=== PATIENT | female | born 1945 | race African-American/Black ===

== ENCOUNTER 2021-07-23 01:25 | Observation (INO) | payer MEDICARE ==
[~2021-07-23] VITALS: Ht 162.6 cm; Wt 98.2 kg
--- NOTE | 2021-07-23 01:44 | PHYS DOC ---
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 Patient states chest pain started around 1300 hrs. substernal without radiation. Patient is describes pain as a heaviness that fluctuates in intensity. Patient states pain is when it is at its worst is 8 out of 10 but never been improves below a 5 out of 10. Patient denies any associated nausea vomiting shortness of breath or diaphoresis. Review of Systems: Review of Systems: Review of systems: Constitutional symptoms- No fever, no chills. Eyes- No Discharge, No Visual Loss Respiratory symptoms- No shortness of breath, No wheezing, No Dyspnea on Exertion Cardiovascular Systems; Positive chest pain, No Palpitations, No syncope Gastrointestinal symptoms: NO abdominal pain, no nausea, no vomiting or diarrhea. Genitourinary symptoms: No dysuria. Musculoskeletal symptoms: No back pain No extremity pain. NEUROLOGICAL Symptoms: No headache, no generalized weakness; No focal Weakness Skin: No rash. Heart Score: C/O Chest Pain: Yes HEART Score for Chest Pain: HEART Score for Chest Pain Response (Comments) Value History Moderately Suspicious 1 ECG Nonspecific Repolarizatio 1 Age > 65 2 Risk Factors 1 or 2 Risk Factors 1 Troponin < Normal Limit 0 Total 5 Risk Factors: Risk Factors: DM, Current or recent (<one month) smoker, HTN, HLP, family history of CAD, obesity. Risk Scores: Score 0 - 3: 2.5% MACE over next 6 weeks - Discharge Home Score 4 - 6: 20.3% MACE over next 6 weeks - Admit for Clinical Observation Score 7 - 10: 72.7% MACE over next 6 weeks - Early Invasive Strategies Allergies: Allergies: Allergies Coded Allergies Type Severity Reaction Last Updated Verified codeine Allergy Intermediate HEART PALPITATIONS 11/29/15 Yes Physical Exam: PE: General: alert, no acute distress. Skin: warm, dry and intact, no erythema, no rash. HENT: bilateral external ears normal, oropharynx moist, nose normal. Head:: Normocephalic, atraumatic. Neck: Trachea midline. Eyes: EOMI, Normal conjunctiva, No drainage CARDIOVASCULAR: Regular rate and rhythm RESPIRATORY: No respiratory distress Back: Full range of motion. MUSCULOSKELETAL: Full range of motion of bilateral upper and lower extremities. GASTROINTESTINAL: Abdomen soft without rebound or guarding. NEUROLOGICAL: Alert and noted to person, place and time. No neurological deficits observed Psychiatric: Cooperative. Normal judgment EKG: EKG: [] Performed at 0134 Rate [address] elevation No ST depression No acute [place] Radiology/Procedures: Radiology/Procedures: [] Impression: EXAMINATION: Chest radiograph. VIEWS: Single AP view of the chest COMPARISON: None available INDICATION:76 years, Female, chest pain. FINDINGS: Hypoventilatory exam . There is partial obscuration of the cardiac silhouette. The thoracic aorta appears tortuous with mild atherosclerotic disease. Silhouette. Bibasilar linear opacities and mild blunting of the left costophrenic angle. No pneumothorax. No acute osseous process. IMPRESSION: Hypoventilatory exam degrading evaluation of the pulmonary parenchyma. Bibasilar opacities favor subsegmental atelectasis and/or infiltrates. Electronically signed by: Howard Ho DO (07/23/2021 2:29 AM) [facility] Course & Med Decision Making: Course & Med Decision Making Pertinent Labs and Imaging studies reviewed. (See chart for details) [] Patient was evaluated for chief complaint. Work-up consisted of laboratory analysis radiologic imaging and EKG. Results reviewed and discussed with patient and family. Treatment included morphine 4 mg for pain. Post treatment patient states pain improved to a 3 out of 10. Patient's pain did return she was then treated with nitroglycerin sublingual x3. Patient's pain again improved to 3 out of 10 but returned. Patient was started on a nitro drip. Patient did have a slightly elevated troponin. Patient is allergic to aspirin. Pain resolved on nitro drip. Admitted to hospitalist with cardiology consult. Alexa Disclaimer: Alexa Disclaimer: This electronic medical record was generated, in whole or in part, using a voice recognition dictation system. Departure Departure Impression: Primary Impression: Chest pain Disposition: ADMITTED INPATIENT Condition: STABLE Referrals: SUPA CHANCE MD (PCP) LUCIANO SHINE DO Jul 23, 2021 01:44
--- NOTE | 2021-07-23 01:44 | EKG ---
[facility] [address] [place] [address] Test Date: 2021-07-23 Test Time: 01:34:14 Pat Name: AILIN SAUER Department: Room: Gender: F Apartment Maintenance Manager: : 1945 Requested By: LUCIANO SHINE Order Number: [id number] Reading MD: Measurements Intervals [place] Rate: 53 P: 25 SD: 188 QRS: -19 QRSD: 92 T: -2 QT: 472 QTc: 445 Interpretive Statements SINUS RHYTHM LEFTWARD AXIS T ABNORMALITY IN INFERIOR LEADS ABNORMAL ECG RI6.02 No previous ECG available for comparison
[2021-07-23 02:01] LABS: BASO % 0 % (0-3); EOS # 0.4 x10^3/uL (0.0-0.7); EOS % 5 % (0-3); HEMATOCRIT 34.7 % (36.0-47.0); HEMOGLOBIN 11.3 g/dL (12.0-15.5); LYMPH # 2.2 x10^3/uL (1.0-4.8); LYMPH % 26 % (24-48); MEAN CORPUSCULAR HEMOGLOBIN 29 pg (25-35); MEAN CORPUSCULAR HGB CONC 32 g/dL (31-37); MEAN CORPUSCULAR VOLUME 88 fL (79-100); MONO # 0.8 x10^3/uL (0.0-1.1); MONO % 10 % (0-9); NEUT % 59 % (31-73); PLATELET COUNT 180 x10^3/uL (140-400); RED BLOOD COUNT 3.93 x10^6/uL (3.50-5.40); RED CELL DISTRIBUTION WIDTH 13.7 % (11.5-14.5); WHITE BLOOD COUNT 8.4 x10^3/uL (4.0-11.0)
[2021-07-23 02:12] LABS: CALCIUM 8.8 mg/dL (8.5-10.1); CREATININE 0.9 mg/dL (0.6-1.0); GFR 73.5
[2021-07-23 02:18] LABS: ALBUMIN 3.6 g/dL (3.4-5.0); ALBUMIN/GLOBULIN RATIO 1.2 (1.0-1.7); TOTAL BILIRUBIN 0.2 mg/dL (0.2-1.0); TOTAL PROTEIN 6.5 g/dL (6.4-8.2)
[2021-07-23] MEDS ORDERED: MORPHINE SULFATE 4 MG/ML INJ. IVP ONE ×2 (02:30→03:30)
--- NOTE | 2021-07-23 02:31 | RAD ---
EXAMINATION: Chest radiograph. VIEWS: Single AP view of the chest COMPARISON: None available INDICATION:76 years, Female, chest pain. FINDINGS: Hypoventilatory exam . There is partial obscuration of the cardiac silhouette. The thoracic aorta bianca ears tortuous with mild atherosclerotic disease. Silhouette. Bibasilar linear opacities and mild blun ting of the left costophrenic angle. No pneumothorax. No acute osseous process. IMPRESSION: Hypoventilatory exam degrading evaluation of the pulmonary parenchyma. Bibasilar opacities favor subs egmental atelectasis and/or infiltrates. Electronically signed by: Howard Ho DO (07/23/2021 2:29 AM) [facility]
[2021-07-23] MEDS ORDERED: NITROGLYCERIN SUBLINGUAL 0.4 MG BOTTLE OF 25. SL PRN ×2 (03:00→03:30)
[2021-07-23] MEDS ORDERED: NITROGLYCERIN PREMIX 250 ML IV ONE (04:00)
[2021-07-23] MEDS: MORPHINE SULFATE 4 MG/ML INJ. IVP PRN ×2 (08:56→11:27)
--- NOTE | 2021-07-23 10:11 | PDOC2 ---
SASHA PALMER MEDIC TECHNICIAN 07/23/21 1011: CARDIAC CONSULT DATE OF CONSULT Date of Consult DATE: 07/23/21 TIME: 09:55 REASON FOR CONSULT Reason for Consult: Chest pain REFERRING PHYSICIAN Referring Physician: Lewis SOURCE Source: Chart review, Patient HISTORY OF PRESENT ILLNESS HISTORY OF PRESENT ILLNESS This is a pleasant 76 yo female admitted for complains of chest pain. Reports that this is lower sternal at the stomach junction and radiated downward towards her bladder. She has been farting a lot no belching and denies any heartburn. Her chest discomfort is like someon is sitting on her chest. No SOA. 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 She can walk a block before getting tired. No nausea or vomiting. No recent falls or injury or intractable coughing. She does take protonix. She does not take ASA. She is significant for HTN and HLP and no DM2. with last A1C at 5.3 with good lipid control in 01/2021. Denies any past hx of CAD nor VTE and she had a stress test in the past but remote. She is vaccinated for the covid-19 and no s/s. No orthopnea or PND. Denies palpitations or dizziness. PAST MEDICAL HISTORY Cardiovascular: HTN, Hyperlipidemia Pulmonary: Other (OK uses CPAP and O2 at night) CENTRAL NERVOUS SYSTEM: Other (No pertinent history) GI: GERD Heme/Onc: No pertinent hx Hepatobiliary: No pertinent hx Psych: No pertinent hx Musculoskeletal: Osteoarthritis Rheumatologic: No pertinent hx Infectious disease: No pertinent hx ENT: Other (optic neuroma) Renal/: Urinary Incontinence Endocrine: No pertinent hx Dermatology: No pertinent hx PAST SURGICAL HISTORY Past Surgical History: Cholecystectomy, Hysterectomy, Other (right optic neuroma removal) FAMILY HISTORY Family History: Coronary Artery Disease (mother in her 70s) SOCIAL HISTORY Smoke: Quit ALCOHOL: none Drugs: None Lives: with Family CURRENT MEDICATIONS CURRENT MEDICATIONS Current Medications Medications (Trade) Dose Ordered Sig/[place] Route PRN Reason Start Time Stop Time Status Last Admin Dose Admin Morphine Sulfate (Morphine Sulfate) 4 mg 1X ONCE IVP 07/23/21 02:30 07/23/21 02:31 DC 07/23/21 02:25 Nitroglycerin (Nitrostat) 0.4 mg PRN Q5MIN PRN SL CHEST PAIN 07/23/21 03:00 07/23/21 03:28 DC 07/23/21 02:56 Morphine Sulfate (Morphine Sulfate) 4 mg 1X ONCE IVP 07/23/21 03:30 07/23/21 03:31 DC 07/23/21 03:38 Morphine Sulfate (Morphine Sulfate) 4 mg PRN Q2HR PRN IVP SEVERE PAIN 7-10 07/23/21 03:30 07/24/21 03:29 07/23/21 08:56 Nitroglycerin/ Dextrose 250 ml @ 0 mls/hr 1X ONCE IV 07/23/21 04:00 07/23/21 04:01 DC 07/23/21 03:43 ALLERGIES ALLERGIES: Coded Allergies: codeine (Verified Allergy, Intermediate, HEART PALPITATIONS, 11/29/15) aspirin (Verified Adverse Reaction, Intermediate, STOMACH UPSET, 07/23/21) ROS Review of System 14 point ROS evaluated with pertinent positives noted per HPI PHYSICAL EXAM General: Alert, Oriented X3, Cooperative, No acute distress HEENT: Atraumatic, Mucous membr. moist/pink Lungs: Clear to auscultation, Normal air movement Heart: Regular rate (SR/SB lowest 50s), Normal S1, Normal S2, No murmurs Abdomen: Soft, No tenderness Extremities: No cyanosis, Other (1+ bilateral Le pitting edema) Skin: No breakdown, No significant lesion Neuro: Normal speech, Sensation intact Psych/Mental Status: Mental status NL, Mood NL MUSCULOSKELETAL: Osteoarthritic changes both hands VITALS/I&O VITALS/I&O: Vital Signs Date Time Temp Pulse Resp B/P (MAP) Pulse Ox O2 Delivery O2 Flow Rate FiO2 07/23/21 09:20 67 24 159/77 (104) 97 Room Air 07/23/21 01:28 98.8 98.8 LABS Lab: Laboratory Tests Test 07/23/21 01:44 07/23/21 07:50 White Blood Count 8.4 x10^3/uL (4.0-11.0) Red Blood Count 3.93 x10^6/uL (3.50-5.40) Hemoglobin 11.3 g/dL (12.0-15.5) L Hematocrit 34.7 % (36.0-47.0) L Mean Corpuscular Volume 88 fL (79-100) Mean Corpuscular Hemoglobin 29 pg (25-35) Mean Corpuscular Hemoglobin Concent 32 g/dL (31-37) Red Cell Distribution Width 13.7 % (11.5-14.5) Platelet Count 180 x10^3/uL (140-400) Neutrophils (%) (Auto) 59 % (31-73) Lymphocytes (%) (Auto) 26 % (24-48) Monocytes (%) (Auto) 10 % (0-9) H Eosinophils (%) (Auto) 5 % (0-3) H Basophils (%) (Auto) 0 % (0-3) Neutrophils # (Auto) 5.0 x10^3/uL (1.8-7.7) Lymphocytes # (Auto) 2.2 x10^3/uL (1.0-4.8) Monocytes # (Auto) 0.8 x10^3/uL (0.0-1.1) Eosinophils # (Auto) 0.4 x10^3/uL (0.0-0.7) Basophils # (Auto) 0.0 x10^3/uL (0.0-0.2) Sodium Level 141 mmol/L (136-145) Potassium Level 4.0 mmol/L (3.5-5.1) Chloride Level 105 mmol/L (98-107) Carbon Dioxide Level 29 mmol/L (21-32) Anion Gap 7 (6-14) Blood Urea Nitrogen 11 mg/dL (7-20) Creatinine 0.9 mg/dL (0.6-1.0) Estimated GFR (Cockcroft-Gault) 73.5 BUN/Creatinine Ratio 12 (6-20) Glucose Level 163 mg/dL (70-99) H Calcium Level 8.8 mg/dL (8.5-10.1) Total Bilirubin 0.2 mg/dL (0.2-1.0) Aspartate Amino Transferase (AST) 19 U/L (15-37) Alanine Aminotransferase (ALT) 14 U/L (14-59) Alkaline Phosphatase 70 U/L (46-116) Troponin I Quantitative 0.031 ng/mL (0.000-0.055) 0.032 ng/mL (0.000-0.055) Total Protein 6.5 g/dL (6.4-8.2) Albumin 3.6 g/dL (3.4-5.0) Albumin/Globulin Ratio 1.2 (1.0-1.7) Laboratory Tests 07/23/21 01:44 Laboratory Tests 07/23/21 01:44 ASSESSMENT/PLAN ASSESSMENT/PLAN 1. Atypical CP: possibly GI 2. HTN 3. HLP 4. OK: CPAP compliant 5. Obesity 6. GERD: uses PPI Recommendations 1. ASA. Restart home BP regimen and statn 2. TTE today.If no significant changes the may DC this afternoon and will schedule for lexiscan 4. FLP, A1C DIGNA LUCIANO MD 07/24/21 1257: CARDIAC CONSULT ASSESSMENT/PLAN ASSESSMENT/PLAN Patient seen and examined 07/23/2021. Agree with VISITING NURSE's assessment and plan. Chest pain with atypical features and most of the GI etiology. Myocardial infarction has been ruled out. Check 2D echo to assess LV systolic function and rule out wall motion abnormalities. Plan ischemic evaluation as an outpatient. Thank you for your consultation SASHA PALMER APRN Jul 23, 2021 10:11 DIGNA LUCIANO MD Jul 24, 2021 12:57
[2021-07-23 10:31] LABS: CHOLESTEROL/HDL RATIO 2.2
--- NOTE | 2021-07-23 10:33 | PDOC1 ---
History and Physical Date of Admission Date of Admission DATE: 07/23/21 TIME: 10:32 Identification/Chief Complaint Chief Complaint 76 year old female past medical history hypertension hyperlipidemia presented to ER with a chief complaint of chest pain. chest pain started around 1300 hrs. YESTERDAY History of Present Illness History of Present Illness 76 year old female past medical history hypertension hyperlipidemia presented to ER with a chief complaint of chest pain. chest pain started around 1300 hrs. YESTERDAY substernal without radiation. describes pain as a heaviness that fluctuates in intensity pmh HTN and HLP and no DM2. last A1C at 5.3 troponin i neg x 2 TTE today. chol = 158 CXR C/W Bibasilar opacities favor subsegmental atelectasis and/or infiltrates. 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 Smoking Status: Former Smoker Alcohol Use: Occasionally Drug Use: None PAST MEDICAL HISTORY Cardiovascular: HTN, Hyperlipidemia Pulmonary: Other (OK uses CPAP and O2 at night) CENTRAL NERVOUS SYSTEM: Other (No pertinent history) GI: GERD Heme/Onc: No pertinent hx Hepatobiliary: No pertinent hx Psych: No pertinent hx Musculoskeletal: Osteoarthritis Rheumatologic: No pertinent hx Infectious disease: No pertinent hx ENT: Other (optic neuroma) Renal/: Urinary Incontinence Endocrine: No pertinent hx Dermatology: No pertinent hx PAST SURGICAL HISTORY Past Surgical History: Cholecystectomy, Hysterectomy, Other (right optic neuroma removal) FAMILY HISTORY Family History: Coronary Artery Disease (mother in her 70s) SOCIAL HISTORY Smoke: Quit ALCOHOL: none Drugs: None Lives: with Family fhx obesity Cardiovascular: HTN, Hyperlipidemia Pulmonary: Other (OK uses CPAP and O2 at night) CENTRAL NERVOUS SYSTEM: Other (No pertinent history) GI: GERD Heme/Onc: No pertinent hx Hepatobiliary: No pertinent hx Psych: No pertinent hx Musculoskeletal: Osteoarthritis Rheumatologic: No pertinent hx Infectious disease: No pertinent hx ENT: Other (optic neuroma) Renal/: Urinary Incontinence Endocrine: No pertinent hx Dermatology: No pertinent hx Past Surgical History Past Surgical History: Cholecystectomy, Hysterectomy, Other (right optic neuroma removal) Family History Family History: Coronary Artery Disease (mother in her 70s), High Cholestrol, Hypertension Social History Smoke: Quit ALCOHOL: none Drugs: None Current Problem List Problem List Problems Medical Problems: (1) Chest pain Status: Acute Current Medications Current Medications Current Medications Morphine Sulfate (Morphine Sulfate) 4 mg 1X ONCE IVP Last administered on 07/23/21at 02:25; Start 07/23/21 at 02:30; Stop 07/23/21 at 02:31; Status DC Nitroglycerin (Nitrostat) 0.4 mg PRN Q5MIN PRN SL CHEST PAIN Last administered on 07/23/21at 02:56; Start 07/23/21 at 03:00; Stop 07/23/21 at 03:28; Status DC Morphine Sulfate (Morphine Sulfate) 4 mg 1X ONCE IVP Last administered on 07/23/21at 03:38; Start 07/23/21 at 03:30; Stop 07/23/21 at 03:31; Status DC Morphine Sulfate (Morphine Sulfate) 4 mg PRN Q2HR PRN IVP SEVERE PAIN 7-10 Last administered on 07/23/21at 08:56; Start 07/23/21 at 03:30; Stop 07/24/21 at 03:29 Nitroglycerin (Nitrostat) 0.4 mg PRN Q5MIN PRN SL CHEST PAIN; Start 07/23/21 at 03:30; Stop 07/24/21 at 03:29 Nitroglycerin/ Dextrose 250 ml @ 0 mls/hr 1X ONCE IV Last administered on 07/23/21at 03:43; Start 07/23/21 at 04:00; Stop 07/23/21 at 04:01; Status DC Aspirin (Ecotrin) 81 mg DAILYWBKFT PO ; Start 07/23/21 at 11:00 Metoprolol Tartrate (Lopressor) 100 mg BID PO ; Start 07/23/21 at 11:00 Simvastatin (Zocor) 20 mg HS PO ; Start 07/23/21 at 21:00 Lisinopril (Prinivil) 40 mg DAILY PO ; Start 07/23/21 at 11:00 Pantoprazole Sodium (Protonix) 40 mg DAILYAC PO ; Start 07/24/21 at 07:30 Pantoprazole Sodium (Protonix) 40 mg 1X ONCE PO ; Start 9/15/21 at 11:00; Stop 07/23/21 at 11:01 Allergies Allergies: Coded Allergies: codeine (Verified Allergy, Intermediate, HEART PALPITATIONS, 11/29/15) aspirin (Verified Adverse Reaction, Intermediate, STOMACH UPSET, 07/23/21) ROS Review of System 14 pt ros otherwise neg General: YES: Fatigue; No: Chills, Night Sweats, Malaise, Appetite, Other PSYCHOLOGICAL ROS: No: Anxiety, Behavioral Disorder, Concentration difficultie, Decreased libido, Depression, Disorientation, Hallucinations, Hostility, Irritablity, Memory difficulties, Mood Swings, Obsessive thoughts, Physical abuse, Sexual abuse, Sleep disturbances, Suicidal ideation, Other Eyes: No Blurry vision, No Decreased vision, No Double vision, No Dry eyes, No Excessive tearing, No Eye Pain, No Itchy Eyes, No Loss of vision, No Photophobia, No Scotomata, No Uses contacts, No Uses glasses, No Other HEENT: No: Heacaches, Visual Changes, Hearing change, Nasal congestion, Nasal discharge, Oral lesions, Sinus pain, Sore Throat, Epistaxis, Sneezing, Snoring, Tinnitus, Vertigo, Vocal changes, Other ALLERGY AND IMMUNOLOGY: YES: Hives; No: Insect Bite Sensitivity, Itchy/Watery Eyes, Nasal Congestion, Post Nasal Drip, Seasonal Allergies, Other Hematological and Lymphatic: No: Bleeding Problems, Blood Clots, Blood Transfusions, Brusing, Night Sweats, Pallor, Swollen Lymph Nodes, Other ENDOCRINE: No: Breast Changes, Galactorrhea, Hair Pattern Changes, Hot Flashes, Malaise/lethargy, Mood Swings, Palpitations, Polydipsia/polyuria, Skin Changes, Temperature Intolerance, Unexpected Weight Changes, Other Breast: No New/Changing Breast Lumps, No Nipple changes, No Nipple discharge, No Other Respiratory: YES: Shortness of breath, SOB with excertion; No: Cough, Hemoptysis, Orthopnea, Pleuritic Pain, Sputum Changes, Stridor, Ta chypnea, Wheezing, Other Cardiovascular: yes Chest Pain; No Palpitations, No Orthopnea, No Paroxysmal Noc. Dyspnea, No Edema, No Lt Headedness, No Other Gastrointestinal: No Nausea, No Vomiting, No Abdominal Pain, No Diarrhea, No Constipation, No Melena, No Hematochezia, No Other Genitourinary: No Dysuria, No Frequency, No Incontinence, No Hematuria, No Retention, No Discharge, No Urgency, No Pain, No Flank Pain, No Other, No , No , No , No , No , No , No Musculoskeletal: Yes Joint Stiffness; No Gait Disturbance, No Joint Pain, No Joint Swelling, No Muscle Pain, No Muscular Weakness, No Pain In:, No Swelling In:, No Other Neurological: No Behavorial Changes, No Bowel/Bladder ControlChng, No Confusion, No Dizziness, No Gait Disturbance, No Headaches, No Impaired Coord/balance, No Memory Loss, No Numbness/Tingling, No Seizures, No Speech Problems, No Tremors, No Visual Changes, No Weakness, No Other Skin: No Dry Skin, No Eczema, No Hair Changes, No Lumps, No Mole Changes, No Mottling, No Nail Changes, No Pruritus, No Rash, No Skin Lesion Changes, No Other, No Acne Physical Exam General: Alert, Oriented X3, Cooperative, No acute distress HEENT: PERRLA, EOMI, Mucous membr. moist/pink Lungs: Clear to auscultation, Normal air movement Heart: RRR, no thrills, no rubs, no gallops, no jug vein distention Breasts: Not examined Abdomen: Normal bowel sounds, Soft, No tenderness, No hepatosplenomegaly, No masses Rectal Exam: not examined PELVIC: Examination not indicated Extremities: No cyanosis Neuro: Normal speech, Cranial nerves 3-12 NL Psych/Mental Status: Mental status NL, Mood NL Vitals Vitals Vital Signs Date Time Temp Pulse Resp B/P (MAP) Pulse Ox O2 Delivery O2 Flow Rate FiO2 07/23/21 09:20 67 24 159/77 (104) 97 Room Air 07/23/21 01:28 98.8 98.8 Labs Labs Laboratory Tests Test 07/23/21 01:44 07/23/21 07:50 White Blood Count 8.4 x10^3/uL (4.0-11.0) Red Blood Count 3.93 x10^6/uL (3.50-5.40) Hemoglobin 11.3 g/dL (12.0-15.5) Hematocrit 34.7 % (36.0-47.0) Mean Corpuscular Volume 88 fL (79-100) Mean Corpuscular Hemoglobin 29 pg (25-35) Mean Corpuscular Hemoglobin Concent 32 g/dL (31-37) Red Cell Distribution Width 13.7 % (11.5-14.5) Platelet Count 180 x10^3/uL (140-400) Neutrophils (%) (Auto) 59 % (31-73) Lymphocytes (%) (Auto) 26 % (24-48) Monocytes (%) (Auto) 10 % (0-9) Eosinophils (%) (Auto) 5 % (0-3) Basophils (%) (Auto) 0 % (0-3) Neutrophils # (Auto) 5.0 x10^3/uL (1.8-7.7) Lymphocytes # (Auto) 2.2 x10^3/uL (1.0-4.8) Monocytes # (Auto) 0.8 x10^3/uL (0.0-1.1) Eosinophils # (Auto) 0.4 x10^3/uL (0.0-0.7) Basophils # (Auto) 0.0 x10^3/uL (0.0-0.2) Sodium Level 141 mmol/L (136-145) Potassium Level 4.0 mmol/L (3.5-5.1) Chloride Level 105 mmol/L (98-107) Carbon Dioxide Level 29 mmol/L (21-32) Anion Gap 7 (6-14) Blood Urea Nitrogen 11 mg/dL (7-20) Creatinine 0.9 mg/dL (0.6-1.0) Estimated GFR (Cockcroft-Gault) 73.5 BUN/Creatinine Ratio 12 (6-20) Glucose Level 163 mg/dL (70-99) Calcium Level 8.8 mg/dL (8.5-10.1) Total Bilirubin 0.2 mg/dL (0.2-1.0) Aspartate Amino Transf (AST/SGOT) 19 U/L (15-37) Alanine Aminotransferase (ALT/SGPT) 14 U/L (14-59) Alkaline Phosphatase 70 U/L (46-116) Troponin I Quantitative 0.031 ng/mL (0.000-0.055) 0.032 ng/mL (0.000-0.055) Total Protein 6.5 g/dL (6.4-8.2) Albumin 3.6 g/dL (3.4-5.0) Albumin/Globulin Ratio 1.2 (1.0-1.7) Triglycerides Level 26 mg/dL (0-150) Cholesterol Level 158 mg/dL (0-200) LDL Cholesterol, Calculated 81 mg/dL (0-100) VLDL Cholesterol, Calculated 5 mg/dL (0-40) Non-HDL Cholesterol Calculated 86 mg/dL (0-129) HDL Cholesterol 72 mg/dL (40-60) Cholesterol/HDL Ratio 2.2 Laboratory Tests Test 07/23/21 01:44 07/23/21 07:50 White Blood Count 8.4 x10^3/uL (4.0-11.0) Red Blood Count 3.93 x10^6/uL (3.50-5.40) Hemoglobin 11.3 g/dL (12.0-15.5) Hematocrit 34.7 % (36.0-47.0) Mean Corpuscular Volume 88 fL (79-100) Mean Corpuscular Hemoglobin 29 pg (25-35) Mean Corpuscular Hemoglobin Concent 32 g/dL (31-37) Red Cell Distribution Width 13.7 % (11.5-14.5) Platelet Count 180 x10^3/uL (140-400) Neutrophils (%) (Auto) 59 % (31-73) Lymphocytes (%) (Auto) 26 % (24-48) Monocytes (%) (Auto) 10 % (0-9) Eosinophils (%) (Auto) 5 % (0-3) Basophils (%) (Auto) 0 % (0-3) Neutrophils # (Auto) 5.0 x10^3/uL (1.8-7.7) Lymphocytes # (Auto) 2.2 x10^3/uL (1.0-4.8) Monocytes # (Auto) 0.8 x10^3/uL (0.0-1.1) Eosinophils # (Auto) 0.4 x10^3/uL (0.0-0.7) Basophils # (Auto) 0.0 x10^3/uL (0.0-0.2) Sodium Level 141 mmol/L (136-145) Potassium Level 4.0 mmol/L (3.5-5.1) Chloride Level 105 mmol/L (98-107) Carbon Dioxide Level 29 mmol/L (21-32) Anion Gap 7 (6-14) Blood Urea Nitrogen 11 mg/dL (7-20) Creatinine 0.9 mg/dL (0.6-1.0) Estimated GFR (Cockcroft-Gault) 73.5 BUN/Creatinine Ratio 12 (6-20) Glucose Level 163 mg/dL (70-99) Calcium Level 8.8 mg/dL (8.5-10.1) Total Bilirubin 0.2 mg/dL (0.2-1.0) Aspartate Amino Transf (AST/SGOT) 19 U/L (15-37) Alanine Aminotransferase (ALT/SGPT) 14 U/L (14-59) Alkaline Phosphatase 70 U/L (46-116) Troponin I Quantitative 0.031 ng/mL (0.000-0.055) 0.032 ng/mL (0.000-0.055) Total Protein 6.5 g/dL (6.4-8.2) Albumin 3.6 g/dL (3.4-5.0) Albumin/Globulin Ratio 1.2 (1.0-1.7) Triglycerides Level 26 mg/dL (0-150) Cholesterol Level 158 mg/dL (0-200) LDL Cholesterol, Calculated 81 mg/dL (0-100) VLDL Cholesterol, Calculated 5 mg/dL (0-40) Non-HDL Cholesterol Calculated 86 mg/dL (0-129) HDL Cholesterol 72 mg/dL (40-60) Cholesterol/HDL Ratio 2.2 Images Images PATIENT: AILIN SAUER ACCOUNT: [id number] : 1945 LOCATION: ER AGE: 76 SEX: F EXAM STATUS: REG ER ORD. PHYSICIAN: LUCIANO SHINE DO REASON: chest pain PROCEDURE: CHEST AP ONLY EXAMINATION: Chest radiograph. VIEWS: Single AP view of the chest COMPARISON: None available INDICATION:76 years, Female, chest pain. FINDINGS: Hypoventilatory exam . There is partial obscuration of the cardiac silhouette. The thoracic aorta appears tortuous with mild atherosclerotic disease. Silhouette. Bibasilar linear opacities and mild blunting of the left costophrenic angle. No pneumothorax. No acute osseous process. IMPRESSION: Hypoventilatory exam degrading evaluation of the pulmonary parenchyma. Bibasilar opacities favor subsegmental atelectasis and/or infiltrates. Electronically signed by: Malick Ho DO (07/23/2021 2:29 AM) [facility] DICTATED and SIGNED BY: MALICK HO VTE Prophylaxis Ordered VTE Prophylaxis Devices: Yes VTE Pharmacological Prophylaxi: Yes Assessment/Plan Assessment/Plan Impression: Chest pain, atypical features possible GERD hypertension hyperlipidemia Morbid obesity Remote tobacco abuse OK: on CPAP compliant hx Mild sleep apnea-hypopnea syndrome with worsening during REM sleep. / Nocturnal hypoxia predominantly REM related obstructive sleep apnea,but resolved with CPAP. GERD: uses PPI ADMITTED CONSULT CARDIOLOGY NTG drip started in ER Consider out pt stress testing home meds dvt prophylaxis TTE today.pending D/W ER DR Justifications for Admission Other Justification VIVIANE REAVES MD Jul 23, 2021 10:33
[2021-07-23] MEDS ORDERED: PANTOPRAZOLE 40 MG TABLET.DR. PO ONE (11:00)
[2021-07-23] MEDS: ASPIRIN ENTERIC COATED 81 MG TABLET.DR. PO SCH (11:27)
[2021-07-23] MEDS: METOPROLOL TART IMMED RELEASE 50 MG TABLET. PO SCH ×2 (11:28→20:00)
[2021-07-23] MEDS: LISINOPRIL 20 MG TABLET PO SCH (11:29)
[2021-07-23] MEDS ORDERED: ALBUTEROL SULFATE 2.5 MG/3 ML NEBU. NEB PRN (11:45)
[2021-07-23] MEDS ORDERED: 0.9 % SODIUM CHLORIDE 10 ML DISP.SYRIN. IV PRN (11:45)
[2021-07-23] MEDS ORDERED: MAG HYDROX/ALUMINUM HYD/SIMETH 30 ML ORAL.SUSP PO PRN (11:45)
[2021-07-23] MEDS ORDERED: SODIUM PHOSPHATES 19/7GM 133 ML ENEMA. PR PRN (11:45)
[2021-07-23] MEDS ORDERED: ONDANSETRON PF 4 MG/2 ML VIAL. IV PRN (11:45)
[2021-07-23] MEDS ORDERED: ACETAMINOPHEN 325 MG TABLET. PO PRN (11:45)
[2021-07-23] MEDS ORDERED: DOCUSATE SODIUM 100 MG CAPSULE. PO PRN (11:45)
[2021-07-23] MEDS ORDERED: guaiFENesin ORAL 200 MG/10 ML LIQUID. PO PRN (11:45)
[2021-07-23] MEDS: ENOXAPARIN 40 MG/0.4 ML SYRINGE. SQ SCH (12:59)
[2021-07-23 13:10] VITALS: BP 154/72
[2021-07-23 15:00] VITALS: BP 155/81
[2021-07-23] MEDS ORDERED: CHOL5000 PO (16:41)
[2021-07-23] MEDS ORDERED: OMEG1CAP50 PO (16:41)
[2021-07-23] MEDS ORDERED: LACT1CAP37 PO (16:41)
[2021-07-23] MEDS ORDERED: LISI40TA6 PO (16:41)
[2021-07-23] MEDS ORDERED: AMOX500T PO (16:41)
[2021-07-23] MEDS ORDERED: AMLO-187 PO (16:41)
[2021-07-23] MEDS ORDERED: PANT40TA6 PO (16:41)
[2021-07-23] MEDS ORDERED: OXYB10TA26 PO (16:41)
[2021-07-23] MEDS ORDERED: CALC500T30 PO (16:41)
[2021-07-23] MEDS ORDERED: SIMV20TA18 PO (16:41)
[2021-07-23] MEDS ORDERED: ACET325T9 PO (16:41)
[2021-07-23] MEDS ORDERED: GLUC-11 PO (16:41)
[2021-07-23] MEDS ORDERED: METO100T7 PO (16:41)
--- NOTE | 2021-07-23 18:34 | CARD ---
MR#: [id number] Date of Study: 07/23/2021 Ordering Physician: SASHA PALMER, Referring Physician: SASHA PALMER, Tech: Lillie Friend, [facility] APPROVED REPORT EXAM: Two-dimensional and M-mode echocardiogram with Doppler and color Doppler. Other Information Quality : AverageHR: 52bpm Technically limited study due to body habitus. INDICATION Chest Pain RISK FACTORS Hypertension Hyperlipidemia 2D DIMENSIONS RVDd3.1 (2.9-3.5cm)Left Atrium(2D)4.1 (1.6-4.0cm) IVSd1.1 (0.7-1.1cm)Aortic Root(2D)2.9 (2.0-3.7cm) LVDd5.0 (3.9-5.9cm)LVOT Diameter2.1 (1.8-2.4cm) PWd1.2 (0.7-1.1cm)LVDs2.6 (2.5-4.0cm) FS (%) 48.1 %SV95.5 ml LVEF(%)59.2 (>50%) Aortic Valve AoV Peak Ozzy.141.0cm/sAoV VTI39.8cm AO Peak GR.7.9mmHgLVOT VTI 24.70cm AO Mean GR.5mmHg Mitral Valve MV E Czeendbv41.4cm/sMV E Peak Gr.5mmHg MV DECEL [id number] A Oqpfcngu34.6cm/s MV E Mean Gr.3mmHgE/A Ratio1.6 TDI Lateral E' P. V6.50cm/sMedial E' P. V6.89cm/s E/Lateral E'15.3E/Medial E'14.4 Tricuspid Valve TR P. [id number]/sRAP [id number] TR Peak Gr.[id number] LEFT VENTRICLE The left ventricle is normal size. There is borderline to mild concentric left ventricular hypertroph y. The left ventricular systolic function is normal and the ejection fraction is within normal range. EF 55% There is normal LV segmental wall motion. Tissue Doppler imaging reveals moderate left ventri cular diastolic dysfunction. RIGHT VENTRICLE The right ventricle is normal size. There is normal right ventricular wall thickness. The right ventr icular systolic function is normal. ATRIA The left atrium is borderline dilated. The right atrium size is normal. The interatrial septum is int act with no evidence for an atrial septal defect or patent foramen ovale as noted on 2-D or Doppler i maging. AORTIC VALVE The aortic valve is not well visualized but grossly appears trileaflet. Doppler and Color Flow reveal ed trace aortic regurgitation. There is no significant aortic valvular stenosis. Calculated aortic va lve area is 2.2 cm2 with maximum pressure gradient of 8 mmHg and mean pressure gradient of 5 mmHg. MITRAL VALVE The mitral valve is normal in structure and function. There is no evidence of mitral valve prolapse. There is no mitral valve stenosis with a mean gradient of 2.56 mmHg. Doppler and Color-flow revealed trace mitral regurgitation. TRICUSPID VALVE The tricuspid valve is not well visualized. Doppler and Color Flow revealed trace tricuspid regurgita tion with an estimated PAP of 33 mmHg. There is no tricuspid valve stenosis. PULMONIC VALVE The pulmonic valve is not well visualized. Doppler and Color Flow revealed trace pulmonic valvular re gurgitation. There is no pulmonic valvular stenosis. GREAT VESSELS The aortic root is normal in size. The IVC is normal in size and collapses >50% with inspiration. PERICARDIAL EFFUSION There is no evidence of significant pericardial effusion. Critical Notification Critical Value: No <Conclusion> The left ventricular systolic function is normal and the ejection fraction is within normal range. EF 55% There is normal LV segmental wall motion. Signed by : Garth Giordano, Electronically Approved : 07/23/2021 18:33:54
[2021-07-23 19:50] VITALS: BP 148/79
[2021-07-23] MEDS ORDERED: SIMVASTATIN 20 MG TABLET PO SCH (21:00)
[2021-07-23 22:59] VITALS: BP 191/86
[2021-07-24 03:00] VITALS: BP 170/79
[2021-07-24 05:47] LABS: HEMOGLOBIN A1C 5.5 % (4.8-5.6)
[2021-07-24] MEDS ORDERED: PANTOPRAZOLE 40 MG TABLET.DR. PO SCH (07:30)
[2021-07-24 07:44] VITALS: BP 167/74
[2021-07-24] MEDS: ASPIRIN ENTERIC COATED 81 MG TABLET.DR. PO SCH (08:53)
[2021-07-24] MEDS: LISINOPRIL 20 MG TABLET PO SCH (08:54)
--- NOTE | 2021-07-24 09:02 | PDOC ---
PROGRESS NOTES Date of Service: DATE: 07/24/21 TIME: 09:01 Chief Complaint Chief Complaint VTE Prophylaxis Ordered VTE Prophylaxis Devices: Yes VTE Pharmacological Prophylaxi: Yes DISCHARGE DX Assessment/Plan Impression: Chest pain, atypical features possible GERD hypertension hyperlipidemia Morbid obesity Remote tobacco abuse OK: on CPAP compliant hx Mild sleep apnea-hypopnea syndrome with worsening during REM sleep. / Nocturnal hypoxia predominantly REM related obstructive sleep apnea,but resolved with CPAP. GERD: uses PPI ADMITTED CONSULT CARDIOLOGY NTG drip started in ER Consider out pt stress testing home meds dvt prophylaxis TTE .If no significant changes the march DC and will schedule for lexiscan FLP, A1C D/C PLANNING 34 MIN Justifications for Admission Other Justification History of Present Illness History of Present Illness Identification/Chief Complaint Chief Complaint 76 year old female past medical history hypertension hyperlipidemia presented to ER with a chief complaint of chest pain. chest pain started around 1300 hrs. 9-14 History of Present Illness History of Present Illness 76 year old female past medical history hypertension hyperlipidemia presented to ER with a chief complaint of chest pain. chest pain started around 1300 hrs. YESTERDAY substernal without radiation. describes pain as a heaviness that fluctuates in intensity pmh HTN and HLP and no DM2. last A1C at 5.3 troponin i neg x 2 TTE today. chol = 158 CXR C/W Bibasilar opacities favor subsegmental atelectasis and/or infiltrates. 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 Smoking Status: Former Smoker Alcohol Use: Occasionally Drug Use: None PAST MEDICAL HISTORY Cardiovascular: HTN, Hyperlipidemia Pulmonary: Other (OK uses CPAP and O2 at night) CENTRAL NERVOUS SYSTEM: Other (No pertinent history) GI: GERD Heme/Onc: No pertinent hx Hepatobiliary: No pertinent hx Psych: No pertinent hx Musculoskeletal: Osteoarthritis Rheumatologic: No pertinent hx Infectious disease: No pertinent hx ENT: Other (optic neuroma) Renal/: Urinary Incontinence Endocrine: No pertinent hx Dermatology: No pertinent hx PAST SURGICAL HISTORY Past Surgical History: Cholecystectomy, Hysterectomy, Other (right optic neuroma removal) FAMILY HISTORY Family History: Coronary Artery Disease (mother in her 70s) SOCIAL HISTORY Smoke: Quit ALCOHOL: none Drugs: None Lives: with Family fhx obesity Cardiovascular: HTN, Hyperlipidemia Pulmonary: Other (OK uses CPAP and O2 at night) CENTRAL NERVOUS SYSTEM: Other (No pertinent history) GI: GERD Heme/Onc: No pertinent hx Hepatobiliary: No pertinent hx Psych: No pertinent hx Musculoskeletal: Osteoarthritis Rheumatologic: No pertinent hx Infectious disease: No pertinent hx ENT: Other (optic neuroma) Renal/: Urinary Incontinence Endocrine: No pertinent hx Dermatology: No pertinent hx Past Surgical History Past Surgical History: Cholecystectomy, Hysterectomy, Other (right optic neuroma removal) Family History Family History: Coronary Artery Disease (mother in her 70s), High Cholestrol, Hypertension Social History Smoke: Quit ALCOHOL: none Drugs: None Current Problem List Problem List Problems Medical Problems: (1) Chest pain Status: Acute Current Medications Current Medications Current Medications Morphine Sulfate (Morphine Sulfate) 4 mg 1X ONCE IVP Last administered on 07/23/21at 02:25; Start 07/23/21 at 02:30; Stop 07/23/21 at 02:31; Status DC Nitroglycerin (Nitrostat) 0.4 mg PRN Q5MIN PRN SL CHEST PAIN Last administered on 07/23/21at 02:56; Start 07/23/21 at 03:00; Stop 07/23/21 at 03:28; Status DC Morphine Sulfate (Morphine Sulfate) 4 mg 1X ONCE IVP Last administered on 07/23/21at 03:38; Start 07/23/21 at 03:30; Stop 07/23/21 at 03:31; Status DC Morphine Sulfate (Morphine Sulfate) 4 mg PRN Q2HR PRN IVP SEVERE PAIN 7-10 Last administered on 07/23/21at 08:56; Start 07/23/21 at 03:30; Stop 07/24/21 at 03:29 Nitroglycerin (Nitrostat) 0.4 mg PRN Q5MIN PRN SL CHEST PAIN; Start 07/23/21 at 03:30; Stop 07/24/21 at 03:29 Nitroglycerin/ Dextrose 250 ml @ 0 mls/hr 1X ONCE IV Last administered on 07/23/21at 03:43; Start 07/23/21 at 04:00; Stop 07/23/21 at 04:01; Status DC Aspirin (Ecotrin) 81 mg DAILYWBKFT PO ; Start 07/23/21 at 11:00 Metoprolol Tartrate (Lopressor) 100 mg BID PO ; Start 07/23/21 at 11:00 Simvastatin (Zocor) 20 mg HS PO ; Start 07/23/21 at 21:00 Lisinopril (Prinivil) 40 mg DAILY PO ; Start 07/23/21 at 11:00 Pantoprazole Sodium (Protonix) 40 mg DAILYAC PO ; Start 07/24/21 at 07:30 Pantoprazole Sodium (Protonix) 40 mg 1X ONCE PO ; Start 07/23/21 at 11:00; Stop 07/23/21 at 11:01 Allergies Allergies: Coded Allergies: codeine (Verified Allergy, Intermediate, HEART PALPITATIONS, 11/29/15) aspirin (Verified Adverse Reaction, Intermediate, STOMACH UPSET, 07/23/21) ROS Review of System 14 pt ros otherwise neg General: YES: Fatigue; No: Chills, Night Sweats, Malaise, Appetite, Other PSYCHOLOGICAL ROS: No: Anxiety, Behavioral Disorder, Concentration difficultie, Decreased libido, Depression, Disorientation, Hallucinations, Hostility, Irritablity, Memory difficulties, Mood Swings, Obsessive thoughts, Physical abuse, Sexual abuse, Sleep disturbances, Suicidal ideation, Other Eyes: No Blurry vision, No Decreased vision, No Double vision, No Dry eyes, No Excessive tearing, No Eye Pain, No Itchy Eyes, No Loss of vision, No Photophobia, No Scotomata, No Uses contacts, No Uses glasses, No Other HEENT: No: Heacaches, Visual Changes, Hearing change, Nasal congestion, Nasal discharge, Oral lesions, Sinus pain, Sore Throat, Epistaxis, Sneezing, Snoring, Tinnitus, Vertigo, Vocal changes, Other ALLERGY AND IMMUNOLOGY: YES: Hives; No: Insect Bite Sensitivity, Itchy/Watery Eyes, Nasal Congestion, Post Nasal Drip, Seasonal Allergies, Other Hematological and Lymphatic: No: Bleeding Problems, Blood Clots, Blood Transfusions, Brusing, Night Sweats, Pallor, Swollen Lymph Nodes, Other ENDOCRINE: No: Breast Changes, Galactorrhea, Hair Pattern Changes, Hot Flashes, Malaise/lethargy, Mood Swings, Palpitations, Polydipsia/polyuria, Skin Changes, Temperature Intolerance, Unexpected Weight Changes, Other Breast: No New/Changing Breast Lumps, No Nipple changes, No Nipple discharge, No Other Respiratory: YES: Shortness of breath, SOB with excertion; No: Cough, Hemoptysis, Orthopnea, Pleuritic Pain, Sputum Changes, Stridor, Tachypnea, Wheezing, Other Cardiovascular: yes Chest Pain; No Palpitations, No Orthopnea, No Paroxysmal Noc. Dyspnea, No Edema, No Lt Headedness, No Other Gastrointestinal: No Nausea, No Vomiting, No Abdominal Pain, No Diarrhea, No Constipation, No Melena, No Hematochezia, No Other Genitourinary: No Dysuria, No Frequency, No Incontinence, No Hematuria, No Retention, No Discharge, No Urgency, No Pain, No Flank Pain, No Other, No , No , No , No , No , No , No Musculoskeletal: Yes Joint Stiffness; No Gait Disturbance, No Joint Pain, No Joint Swelling, No Muscle Pain, No Muscular Weakness, No Pain In:, No Swelling In:, No Other Neurological: No Behavorial Changes, No Bowel/Bladder ControlChng, No Confusion, No Dizziness, No Gait Disturbance, No Headaches, No Impaired Coord/balance, No Memory Loss, No Numbness/Tingling, No Seizures, No Speech Problems, No Tremors, No Visual Changes, No Weakness, No Other Skin: No Dry Skin, No Eczema, No Hair Changes, No Lumps, No Mole Changes, No Mottling, No Nail Changes, No Pruritus, No Rash, No Skin Lesion Changes, No Other, No Acne Vitals Vitals Vital Signs Date Time Temp Pulse Resp B/P (MAP) Pulse Ox O2 Delivery O2 Flow Rate FiO2 07/24/21 08:54 49 167/74 07/24/21 07:44 98.3 18 97 Room Air 98.3 Physical Exam General: Alert, Oriented X3, Cooperative, No acute distress Heart: Regular rate (SR/SB lowest 50s), Normal S1, Normal S2, No murmurs Abdomen: Normal bowel sounds, Soft, No tenderness, No hepatosplenomegaly, No masses Extremities: No clubbing, No cyanosis Skin: No breakdown, No significant lesion Labs LABS Tricuspid Valve TR P. Velocity 265cm/s RAP ESTIMATE 3mmHg TR Peak Gr. 30mmHg RVSP 33mmHg LEFT VENTRICLE The left ventricle is normal size. There is borderline to mild concentric left ventricular hypertrophy. The left ventricular systolic function is normal and the ejection fraction is within normal range. EF 55% There is normal LV segmental wall motion. Tissue Doppler imaging reveals moderate left ventricular diastolic dysfunction. RIGHT VENTRICLE The right ventricle is normal size. There is normal right ventricular wall thickness. The right ventricular systolic function is normal. ATRIA The left atrium is borderline dilated. The right atrium size is normal. The interatrial septum is intact with no evidence for an atrial septal defect or pa tent foramen ovale as noted on 2-D or Doppler imaging. AORTIC VALVE The aortic valve is not well visualized but grossly appears trileaflet. Doppler and Color Flow revealed trace aortic regurgitation. There is no significant aortic valvular stenosis. Calculated aortic valve area is 2.2 cm2 with maximum pressure gradient of 8 mmHg and mean pressure gradient of 5 mmHg. MITRAL VALVE The mitral valve is normal in structure and function. There is no evidence of mitral valve prolapse. There is no mitral valve stenosis with a mean gradient of 2.56 mmHg. Doppler and Color-flow revealed trace mitral regurgitation. TRICUSPID VALVE The tricuspid valve is not well visualized. Doppler and Color Flow revealed trace tricuspid regurgitation with an estimated PAP of 33 mmHg. There is no tricuspid valve stenosis. PULMONIC VALVE The pulmonic valve is not well visualized. Doppler and Color Flow revealed trace pulmonic valvular regurgitation. There is no pulmonic valvular stenosis. GREAT VESSELS The aortic root is normal in size. The IVC is normal in size and collapses >50% with inspiration. PERICARDIAL EFFUSION There is no evidence of significant pericardial effusion. Critical Notification Critical Value: No <Conclusion> The left ventricular systolic function is normal and the ejection fraction is within normal range. EF 55% There is normal LV segmental wall motion. Signed by : Gloria Cardona, Electronically Approved : 07/23/2021 18:33:54 DICTATED and SIGNED BY: GLORIA CARDONA MD DATE: 07/23/21 [id number] Laboratory Tests Test 07/23/21 10:55 07/23/21 12:15 Troponin I Quantitative 0.031 ng/mL (0.000-0.055) D-Dimer (Celeste) 0.70 ug/mlFEU (0.00-0.50) Assessment and Plan Assessmemt and Plan Problems Medical Problems: (1) Chest pain Status: Acute Comment Review of Relevant I have reviewed the following items april (where applicable) has been applied. Labs Laboratory Tests Test 07/23/21 01:44 07/23/21 07:50 07/23/21 10:55 07/23/21 12:15 White Blood Count 8.4 x10^3/uL (4.0-11.0) Red Blood Count 3.93 x10^6/uL (3.50-5.40) Hemoglobin 11.3 g/dL (12.0-15.5) Hematocrit 34.7 % (36.0-47.0) Mean Corpuscular Volume 88 fL (79-100) Mean Corpuscular Hemoglobin 29 pg (25-35) Mean Corpuscular Hemoglobin Concent 32 g/dL (31-37) Red Cell Distribution Width 13.7 % (11.5-14.5) Platelet Count 180 x10^3/uL (140-400) Neutrophils (%) (Auto) 59 % (31-73) Lymphocytes (%) (Auto) 26 % (24-48) Monocytes (%) (Auto) 10 % (0-9) Eosinophils (%) (Auto) 5 % (0-3) Basophils (%) (Auto) 0 % (0-3) Neutrophils # (Auto) 5.0 x10^3/uL (1.8-7.7) Lymphocytes # (Auto) 2.2 x10^3/uL (1.0-4.8) Monocytes # (Auto) 0.8 x10^3/uL (0.0-1.1) Eosinophils # (Auto) 0.4 x10^3/uL (0.0-0.7) Basophils # (Auto) 0.0 x10^3/uL (0.0-0.2) Sodium Level 141 mmol/L (136-145) Potassium Level 4.0 mmol/L (3.5-5.1) Chloride Level 105 mmol/L (98-107) Carbon Dioxide Level 29 mmol/L (21-32) Anion Gap 7 (6-14) Blood Urea Nitrogen 11 mg/dL (7-20) Creatinine 0.9 mg/dL (0.6-1.0) Estimated GFR (Cockcroft-Gault) 73.5 BUN/Creatinine Ratio 12 (6-20) Glucose Level 163 mg/dL (70-99) Hemoglobin A1c 5.5 % (4.8-5.6) Calcium Level 8.8 mg/dL (8.5-10.1) Total Bilirubin 0.2 mg/dL (0.2-1.0) Aspartate Amino Transf (AST/SGOT) 19 U/L (15-37) Alanine Aminotransferase (ALT/SGPT) 14 U/L (14-59) Alkaline Phosphatase 70 U/L (46-116) Troponin I Quantitative 0.031 ng/mL (0.000-0.055) 0.032 ng/mL (0.000-0.055) 0.031 ng/mL (0.000-0.055) Total Protein 6.5 g/dL (6.4-8.2) Albumin 3.6 g/dL (3.4-5.0) Albumin/Globulin Ratio 1.2 (1.0-1.7) Triglycerides Level 26 mg/dL (0-150) Cholesterol Level 158 mg/dL (0-200) LDL Cholesterol, Calculated 81 mg/dL (0-100) VLDL Cholesterol, Calculated 5 mg/dL (0-40) Non-HDL Cholesterol Calculated 86 mg/dL (0-129) HDL Cholesterol 72 mg/dL (40-60) Cholesterol/HDL Ratio 2.2 Thyroid Stimulating Hormone (TSH) 1.034 uIU/mL (0.358-3.74) D-Dimer (Celeste) 0.70 ug/mlFEU (0.00-0.50) Laboratory Tests Test 07/23/21 10:55 07/23/21 12:15 Troponin I Quantitative 0.031 ng/mL (0.000-0.055) D-Dimer (Celeste) 0.70 ug/mlFEU (0.00-0.50) Medications Current Medications Morphine Sulfate (Morphine Sulfate) 4 mg 1X ONCE IVP Last administered on 07/23/21at 02:25; Start 07/23/21 at 02:30; Stop 07/23/21 at 02:31; Status DC Nitroglycerin (Nitrostat) 0.4 mg PRN Q5MIN PRN SL CHEST PAIN Last administered on 07/23/21at 02:56; Start 07/23/21 at 03:00; Stop 07/23/21 at 03:28; Status DC Morphine Sulfate (Morphine Sulfate) 4 mg 1X ONCE IVP Last administered on 07/23/21at 03:38; Start 07/23/21 at 03:30; Stop 07/23/21 at 03:31; Status DC Morphine Sulfate (Morphine Sulfate) 4 mg PRN Q2HR PRN IVP SEVERE PAIN 7-10 Last administered on 07/23/21at 11:27; Start 07/23/21 at 03:30; Stop 07/24/21 at 05:49; Status DC Nitroglycerin (Nitrostat) 0.4 mg PRN Q5MIN PRN SL CHEST PAIN; Start 07/23/21 at 03:30; Stop 07/24/21 at 05:49; Status DC Nitroglycerin/ Dextrose 250 ml @ 0 mls/hr 1X ONCE IV Last administered on 07/23/21at 03:43; Start 07/23/21 at 04:00; Stop 07/23/21 at 04:01; Status DC Aspirin (Ecotrin) 81 mg DAILYWBKFT PO Last administered on 07/24/21at 08:53; Start 07/23/21 at 11:00 Metoprolol Tartrate (Lopressor) 100 mg BID PO Last administered on 07/23/21at 20:00; Start 07/23/21 at 11:00 Simvastatin (Zocor) 20 mg HS PO Last administered on 07/23/21at 19:59; Start 07/23/21 at 21:00 Lisinopril (Prinivil) 40 mg DAILY PO Last administered on 07/24/21at 08:54; St art 07/23/21 at 11:00 Pantoprazole Sodium (Protonix) 40 mg DAILYAC PO Last administered on 07/24/21at 08:54; Start 07/24/21 at 07:30 Pantoprazole Sodium (Protonix) 40 mg 1X ONCE PO Last administered on 07/23/21at 11:30; Start 07/23/21 at 11:00; Stop 07/23/21 at 11:01; Status DC Sodium Chloride (Normal Saline Flush) 3 ml QSHIFT PRN IV AFTER MEDS AND BLOOD DRAWS; Start 07/23/21 at 11:45 Ondansetron HCl (Zofran) 4 mg PRN Q4HRS PRN IV NAUSEA/VOMITING; Start 07/23/21 at 11:45 Acetaminophen (Tylenol) 650 mg PRN Q4HRS PRN PO TEMP OVER 100.4F OR MILD PAIN Last administered on 07/24/21at 08:52; Start 07/23/21 at 11:45 Al Hydroxide/Mg Hydroxide (Mylanta Plus Xs) 30 ml PRN DAILY PRN PO HEARTBURN / GAS; Start 07/23/21 at 11:45 Sodium Monofluorophosphate (Fleet Adult) 133 ml PRN DAILY PRN AR CONSTIPATION; Start 07/23/21 at 11:45 Docusate Sodium (Colace) 100 mg PRN BID PRN PO HARD STOOLS; Start 07/23/21 at 11:45 Albuterol Sulfate (Ventolin Neb Soln) 2.5 mg PRN Q4HRS PRN NEB SHORTNESS OF BREATH; Start 07/23/21 at 11:45 Guaifenesin (Robitussin) 200 mg PRN Q4HRS PRN PO COUGH; Start 07/23/21 at 11:45 Enoxaparin Sodium (Lovenox 40mg Syringe) 40 mg Q24H SQ Last administered on 07/23/21at 12:59; Start 07/23/21 at 12:00 Active Scripts Active Reported Tylenol (Acetaminophen) 325 Mg Tablet 1 Tab PO PRN Q4HRS Probiotic (Lactobacillus Combo No.10) 1 Each Capsule 1 Tab PO DAILY 30 Days Vitamin D3 (Vitamin D) 125 Mcg Capsule 125 Mcg PO DAILY 5,000 UNITS = 125 MCG Calcium (Calcium Carbonate) 500 Mg Tablet 500 Mg PO DAILY Cidaflex Tablet (Glucosamine Hcl/Chondr Hdz A Na) 1 Each Tablet 1 Tab PO BID 30 Days Fish Oil 1,000 Mg Softgel ([place]-3 Fatty Acids/Fish Oil) 1 Each Capsule 1 Cap PO DAILY 30 Days Amlodipine Besylate 10 Mg Tablet 1 Tab PO DAILY Oxybutynin Chloride Er (Oxybutynin Chloride) 10 Mg Tab.er.24 1 Tab PO DAILY Simvastatin 20 Mg Tablet 10 Tab PO HS Metoprolol Tartrate 100 Mg Tablet 1 Tab PO BID Pantoprazole Sodium 40 Mg Tablet.dr 1 Tab PO DAILY Lisinopril 40 Mg Tablet 1 Tab PO DAILY Amoxicillin 500 Mg Tablet 1 Tab PO TID Vitals/I & O Vital Sign - Last 24 Hours 07/23/21 07/23/21 07/23/21 07/23/21 09:20 09:20 09:50 10:00 Pulse 57 67 66 Resp 24 24 24 22 B/P (MAP) 159/77 (104) 159/77 (104) 163/69 (100) Pulse Ox 97 97 94 96 O2 Delivery Room Air Room Air Room Air Room Air 07/23/21 07/23/21 07/23/21 07/23/21 10:20 10:50 11:20 11:27 Temp 98.0 98.0 Pulse 56 54 64 Resp 21 22 20 20 B/P (MAP) 164/74 (104) 191/77 (115) 154/68 (96) Pulse Ox 95 95 97 95 O2 Delivery Room Air Room Air Room Air Room Air 07/23/21 07/23/21 07/23/21 07/23/21 11:28 11:29 11:57 12:59 Temp 98.0 98.0 Pulse 64 64 59 Resp 17 24 B/P (MAP) 154/68 154/68 156/69 (98) Pulse Ox 97 97 O2 Delivery Room Air Room Air 07/23/21 07/23/21 07/23/21 07/23/21 13:10 15:00 16:33 19:42 Temp 97.8 98.3 97.8 98.3 Pulse 68 56 Resp 20 20 B/P (MAP) 154/72 (99) 155/81 (105) Pulse Ox 98 98 O2 Delivery Room Air Room Air Room Air Room Air 07/23/21 07/23/21 07/23/21 07/24/21 19:50 20:00 22:59 03:00 Temp 97.8 98.1 98.1 97.8 98.1 98.1 Pulse 58 58 53 51 Resp 20 17 18 B/P (MAP) 148/79 (102) 148/79 191/86 (121) 170/79 (109) Pulse Ox 95 98 97 O2 Delivery Room Air Room Air Room Air 07/24/21 07/24/21 07:44 08:54 Temp 98.3 98.3 Pulse 49 49 Resp 18 B/P (MAP) 167/74 (105) 167/74 Pulse Ox 97 O2 Delivery Room Air Intake and Output 9/15/21 9/15/21 9/16/21 15:00 23:00 07:00 Intake Total 9 ml 420 ml 150 ml Balance 9 ml 420 ml 150 ml Justicifation of Admission Dx: Justifications for Admission: Justification of Admission Dx: No VIVIANE REAVES MD Jul 24, 2021 09:02
[2021-07-24 10:26] VITALS: BP 137/76
--- NOTE | 2021-07-24 10:42 | NUR ---
SS following for discharge planning. SS reviewed pt chart and discussed with pt RN. Pt is from home with spouse and is currently on room air. Cardiology consulted. SS will continue to follow for discharge planning.
--- NOTE | 2021-07-24 11:03 | PDOC ---
CARDIO Progress Notes Date and Time Date of Service 07/24/2021 Time of Evaluation 1050 Subjective Subjective: No Chest Pain, No shortness of breath, No Palpitations Vitals Vitals Vital Signs Date Time Temp Pulse Resp B/P (MAP) Pulse Ox O2 Delivery O2 Flow Rate FiO2 07/24/21 10:26 97.9 58 18 137/76 (96) 96 Room Air 97.9 Weight Weight [ ] Input and Output Intake and Output Intake and Output 07/24/21 07:00 Intake Total 579 ml Balance 579 ml Intake Oral 570 ml IV Total 9 ml # Voids 2 Laboratory Labs Laboratory Tests Test 07/23/21 12:15 D-Dimer (Celeste) 0.70 ug/mlFEU (0.00-0.50) Physical Exam HEENT: Neck Supple W Full Motion Chest: Symmetric LUNGS: Clear to Auscultation Heart: RRR (SR) Abdomen: Soft N/T Extremities: No Edema, No Calf Tenderness Neurology: alert, oriented, follow commands Assessment Assessment 1. Atypical CP: possibly GI. EF and WM nml 2. HTN: controlled 3. HLP: on goal. A1C at 5.5 4. OK: CPAP compliant 5. Obesity 6. GERD: uses PPI 7. asymptoamtic SB: lowest noted HR was in the 50s. No recorded in the 40s. Baseline is 60s Recommendations 1. ASA. Continue secondary prevention measures. Continue BB 2. outpt stress test. Follow up in office Justicifation of Admission Dx: Justifications for Admission: Justification of Admission Dx: Yes SASHA PALMER APRN Jul 24, 2021 11:02
[2021-07-24] MEDS: ENOXAPARIN 40 MG/0.4 ML SYRINGE. SQ SCH (12:00)
[2021-07-24 12:19] VITALS: BP 137/76
[2021-07-24] MEDS: METOPROLOL TART IMMED RELEASE 50 MG TABLET. PO SCH (12:19)
--- NOTE | 2021-07-24 12:45 | PDOC3 ---
Discharge Summary Date of Admission: Jul 23, 2021 Date of Discharge: Jul 24, 2021 Follow-Up: 3-5 days Admitting Diagnosis comment: COMPLICATIONS NONE D/C CONDITION GOOD D/C MEDS SEE MAR CONSULTS CARDIOLOGY, PLANS OUTPATIENT STRESS TESTING SOON DISCHARGE DX Assessment/Plan Impression: Chest pain, atypical features possible GERD hypertension hyperlipidemia Morbid obesity Remote tobacco abuse OK: on CPAP compliant hx Mild sleep apnea-hypopnea syndrome with worsening during REM sleep. / Nocturnal hypoxia predominantly REM related obstructive sleep apnea,but resolved with CPAP. GERD: uses PPI ADMITTED CONSULT CARDIOLOGY NTG drip started in ER Consider out pt stress testing home meds dvt prophylaxis TTE .If no significant changes the march DC and will schedule for lexiscan FLP, A1C D/C PLANNING 34 MIN Justifications for Admission Other Justification History of Present Illness History of Present Illness Identification/Chief Complaint Chief Complaint 76 year old female past medical history hypertension hyperlipidemia presented to ER with a chief complaint of chest pain. chest pain started around 1300 hrs. 9-14 History of Present Illness History of Present Illness 76 year old female past medical history hypertension hyperlipidemia presented to ER with a chief complaint of chest pain. chest pain started around 1300 hrs. YESTERDAY substernal without radiation. describes pain as a heaviness that fluctuates in intensity pmh HTN and HLP and no DM2. last A1C at 5.3 troponin i neg x 2 TTE today. chol = 158 CXR C/W Bibasilar opacities favor subsegmental atelectasis and/or infiltrates. 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 Smoking Status: Former Smoker Alcohol Use: Occasionally Drug Use: None PAST MEDICAL HISTORY Cardiovascular: HTN, Hyperlipidemia Pulmonary: Other (OK uses CPAP and O2 at night) CENTRAL NERVOUS SYSTEM: Other (No pertinent history) GI: GERD Heme/Onc: No pertinent hx Hepatobiliary: No pertinent hx Psych: No pertinent hx Musculoskeletal: Osteoarthritis Rheumatologic: No pertinent hx Infectious disease: No pertinent hx ENT: Other (optic neuroma) Renal/: Urinary Incontinence Endocrine: No pertinent hx Dermatology: No pertinent hx PAST SURGICAL HISTORY Past Surgical History: Cholecystectomy, Hysterectomy, Other (right optic neuroma removal) FAMILY HISTORY Family History: Coronary Artery Disease (mother in her 70s) SOCIAL HISTORY Smoke: Quit ALCOHOL: none Drugs: None Lives: with Family fhx obesity Cardiovascular: HTN, Hyperlipidemia Pulmonary: Other (OK uses CPAP and O2 at night) CENTRAL NERVOUS SYSTEM: Other (No pertinent history) GI: GERD Heme/Onc: No pertinent hx Hepatobiliary: No pertinent hx Psych: No pertinent hx Musculoskeletal: Osteoarthritis Rheumatologic: No pertinent hx Infectious disease: No pertinent hx ENT: Other (optic neuroma) Renal/: Urinary Incontinence Endocrine: No pertinent hx Dermatology: No pertinent hx Past Surgical History Past Surgical History: Cholecystectomy, Hysterectomy, Other (right optic neuroma removal) Family History Family History: Coronary Artery Disease (mother in her 70s), High Cholestrol, Hypertension Social History Smoke: Quit ALCOHOL: none Drugs: None Current Problem List Problem List Problems Medical Problems: (1) Chest pain Status: Acute Current Medications Current Medications Current Medications Morphine Sulfate (Morphine Sulfate) 4 mg 1X ONCE IVP Last administered on 07/23/21at 02:25; Start 07/23/21 at 02:30; Stop 07/23/21 at 02:31; Status DC Nitroglycerin (Nitrostat) 0.4 mg PRN Q5MIN PRN SL CHEST PAIN Last administered on 07/23/21at 02:56; Start 07/23/21 at 03:00; Stop 07/23/21 at 03:28; Status DC Morphine Sulfate (Morphine Sulfate) 4 mg 1X ONCE IVP Last administered on 07/23/21at 03:38; Start 07/23/21 at 03:30; Stop 07/23/21 at 03:31; Status DC Morphine Sulfate (Morphine Sulfate) 4 mg PRN Q2HR PRN IVP SEVERE PAIN 7-10 Last administered on 07/23/21at 08:56; Start 07/23/21 at 03:30; Stop 07/24/21 at 03:29 Nitroglycerin (Nitrostat) 0.4 mg PRN Q5MIN PRN SL CHEST PAIN; Start 07/23/21 at 03:30; Stop 07/24/21 at 03:29 Nitroglycerin/ Dextrose 250 ml @ 0 mls/hr 1X ONCE IV Last administered on 07/23/21at 03:43; Start 07/23/21 at 04:00; Stop 07/23/21 at 04:01; Status DC Aspirin (Ecotrin) 81 mg DAILYWBKFT PO ; Start 07/23/21 at 11:00 Metoprolol Tartrate (Lopressor) 100 mg BID PO ; Start 07/23/21 at 11:00 Simvastatin (Zocor) 20 mg HS PO ; Start 07/23/21 at 21:00 Lisinopril (Prinivil) 40 mg DAILY PO ; Start 07/23/21 at 11:00 Pantoprazole Sodium (Protonix) 40 mg DAILYAC PO ; Start 07/24/21 at 07:30 Pantoprazole Sodium (Protonix) 40 mg 1X ONCE PO ; Start 07/23/21 at 11:00; Stop 07/23/21 at 11:01 Allergies Allergies: Coded Allergies: codeine (Verified Allergy, Intermediate, HEART PALPITATIONS, 11/29/15) aspirin (Verified Adverse Reaction, Intermediate, STOMACH UPSET, 07/23/21) ROS Review of System 14 pt ros otherwise neg General: YES: Fatigue; No: Chills, Night Sweats, Malaise, Appetite, Other PSYCHOLOGICAL ROS: No: Anxiety, Behavioral Disorder, Concentration difficultie, Decreased libido, Depression, Disorientation, Hallucinations, Hostility, Irritablity, Memory difficulties, Mood Swings, Obsessive thoughts, Physical abuse, Sexual abuse, Sleep disturbances, Suicidal ideation, Other Eyes: No Blurry vision, No Decreased vision, No Double vision, No Dry eyes, No Excessive tearing, No Eye Pain, No Itchy Eyes, No Loss of vision, No Photophobia, No Scotomata, No Uses contacts, No Uses glasses, No Other HEENT: No: Heacaches, Visual Changes, Hearing change, Nasal congestion, Nasal discharge, Oral lesions, Sinus pain, Sore Throat, Epistaxis, Sneezing, Snoring, Tinnitus, Vertigo, Vocal changes, Other ALLERGY AND IMMUNOLOGY: YES: Hives; No: Insect Bite Sensitivity, Itchy/Watery Eyes, Nasal Congestion, Post Nasal Drip, Seasonal Allergies, Other Hematological and Lymphatic: No: Bleeding Problems, Blood Clots, Blood Transfusions, Brusing, Night Sweats, Pallor, Swollen Lymph Nodes, Other ENDOCRINE: No: Breast Changes, Galactorrhea, Hair Pattern Changes, Hot Flashes, Malaise/lethargy, Mood Swings, Palpitations, Polydipsia/polyuria, Skin Changes, Temperature Intolerance, Unexpected Weight Changes, Other Breast: No New/Changing Breast Lumps, No Nipple changes, No Nipple discharge, No Other Respiratory: YES: Shortness of breath, SOB with excertion; No: Cough, Hemoptysis, Orthopnea, Pleuritic Pain, Sputum Changes, Stridor, Tachypnea, Wheezing, Other Cardiovascular: yes Chest Pain; No Palpitations, No Orthopnea, No Paroxysmal Noc. Dyspnea, No Edema, No Lt Headedness, No Other Gastrointestinal: No Nausea, No Vomiting, No Abdominal Pain, No Diarrhea, No Constipation, No Melena, No Hematochezia, No Other Genitourinary: No Dysuria, No Frequency, No Incontinence, No Hematuria, No Retention, No Discharge, No Urgency, No Pain, No Flank Pain, No Other, No , No , No , No , No , No , No Musculoskeletal: Yes Joint Stiffness; No Gait Disturbance, No Joint Pain, No Joint Swelling, No Muscle Pain, No Muscular Weakness, No Pain In:, No Swelling In:, No Other Neurological: No Behavorial Changes, No Bowel/Bladder ControlChng, No Confusion, No Dizziness, No Gait Disturbance, No Headaches, No Impaired Coord/balance, No Memory Loss, No Numbness/Tingling, No Seizures, No Speech Problems, No Tremors, No Visual Changes, No Weakness, No Other Skin: No Dry Skin, No Eczema, No Hair Changes, No Lumps, No Mole Changes, No Mottling, No Nail Changes, No Pruritus, No Rash, No Skin Lesion Changes, No Other, No Acne Vitals Vitals Vital Signs Date Time Temp Pulse Resp B/P (MAP) Pulse Ox O2 Delivery O2 Flow Rate FiO2 07/24/21 08:54 49 167/74 07/24/21 07:44 98.3 18 97 Room Air 98.3 Physical Exam General: Alert, Oriented X3, Cooperative, No acute distress Heart: Regular rate (SR/SB lowest 50s), Normal S1, Normal S2, No murmurs Abdomen: Normal bowel sounds, Soft, No tenderness, No hepatosplenomegaly, No masses Extremities: No clubbing, No cyanosis Skin: No breakdown, No significant lesion FINAL DIAGNOSIS Problems Medical Problems: (1) Chest pain Status: Acute Brief Hospital Course Ms. Menard is a 76 old [sex] who presented with [CHEST PAIN ] CONDITION AT DISCHARGE: Improved Discharge Medications Current Medications Morphine Sulfate (Morphine Sulfate) 4 mg 1X ONCE IVP Last administered on 07/09 03/28at 02:25; Start 07/23/21 at 02:30; Stop 07/23/21 at 02:31; Status DC Nitroglycerin (Nitrostat) 0.4 mg PRN Q5MIN PRN SL CHEST PAIN Last administered on 07/23/21at 02:56; Start 07/23/21 at 03:00; Stop 07/23/21 at 03:28; Status DC Morphine Sulfate (Morphine Sulfate) 4 mg 1X ONCE IVP Last administered on 07/23/21at 03:38; Start 07/23/21 at 03:30; Stop 07/23/21 at 03:31; Status DC Morphine Sulfate (Morphine Sulfate) 4 mg PRN Q2HR PRN IVP SEVERE PAIN 7-10 Last administered on 07/23/21at 11:27; Start 07/23/21 at 03:30; Stop 07/24/21 at 05:49; Status DC Nitroglycerin (Nitrostat) 0.4 mg PRN Q5MIN PRN SL CHEST PAIN; Start 07/23/21 at 03:30; Stop 07/24/21 at 05:49; Status DC Nitroglycerin/ Dextrose 250 ml @ 0 mls/hr 1X ONCE IV Last administered on 07/23/21at 03:43; Start 07/23/21 at 04:00; Stop 07/23/21 at 04:01; Status DC Aspirin (Ecotrin) 81 mg DAILYWBKFT PO Last administered on 07/24/21at 08:53; Start 07/23/21 at 11:00 Metoprolol Tartrate (Lopressor) 100 mg BID PO Last administered on 07/24/21at 12:19; Start 07/23/21 at 11:00 Simvastatin (Zocor) 20 mg HS PO Last administered on 07/23/21at 19:59; Start 07/23/21 at 21:00 Lisinopril (Prinivil) 40 mg DAILY PO Last administered on 07/24/21at 08:54; Start 07/23/21 at 11:00 Pantoprazole Sodium (Protonix) 40 mg DAILYAC PO Last administered on 07/24/21at 08:54; Start 07/24/21 at 07:30 Pantoprazole Sodium (Protonix) 40 mg 1X ONCE PO Last administered on 07/23/21at 11:30; Start 07/23/21 at 11:00; Stop 07/23/21 at 11:01; Status DC Sodium Chloride (Normal Saline Flush) 3 ml QSHIFT PRN IV AFTER MEDS AND BLOOD DRAWS; Start 07/23/21 at 11:45 Ondansetron HCl (Zofran) 4 mg PRN Q4HRS PRN IV NAUSEA/VOMITING; Start 07/23/21 at 11:45 Acetaminophen (Tylenol) 650 mg PRN Q4HRS PRN PO TEMP OVER 100.4F OR MILD PAIN Last administered on 07/24/21at 08:52; Start 07/23/21 at 11:45 Al Hydroxide/Mg Hydroxide (Mylanta Plus Xs) 30 ml PRN DAILY PRN PO HEARTBURN / GAS; Start 07/23/21 at 11:45 Sodium Monofluorophosphate (Fleet Adult) 133 ml PRN DAILY PRN UT CONSTIPATION; Start 07/23/21 at 11:45 Docusate Sodium (Colace) 100 mg PRN BID PRN PO HARD STOOLS; Start 07/23/21 at 11:45 Albuterol Sulfate (Ventolin Neb Soln) 2.5 mg PRN Q4HRS PRN NEB SHORTNESS OF BREATH; Start 07/23/21 at 11:45 Guaifenesin (Robitussin) 200 mg PRN Q4HRS PRN PO COUGH; Start 07/23/21 at 11:45 Enoxaparin Sodium (Lovenox 40mg Syringe) 40 mg Q24H SQ Last administered on 07/23/21at 12:59; Start 07/23/21 at 12:00 Active Scripts Active Reported Tylenol (Acetaminophen) 325 Mg Tablet 1 Tab PO PRN Q4HRS Probiotic (Lactobacillus Combo No.10) 1 Each Capsule 1 Tab PO DAILY 30 Days Vitamin D3 (Vitamin D) 125 Mcg Capsule 125 Mcg PO DAILY 5,000 UNITS = 125 MCG Calcium (Calcium Carbonate) 500 Mg Tablet 500 Mg PO DAILY Cidaflex Tablet (Glucosamine Hcl/Chondr Hdz A Na) 1 Each Tablet 1 Tab PO BID 30 Days Fish Oil 1,000 Mg Softgel ([place]-3 Fatty Acids/Fish Oil) 1 Each Capsule 1 Cap PO DAILY 30 Days Amlodipine Besylate 10 Mg Tablet 1 Tab PO DAILY Oxybutynin Chloride Er (Oxybutynin Chloride) 10 Mg Tab.er.24 1 Tab PO DAILY Simvastatin 20 Mg Tablet 10 Tab PO HS Metoprolol Tartrate 100 Mg Tablet 1 Tab PO BID Pantoprazole Sodium 40 Mg Tablet.dr 1 Tab PO DAILY Lisinopril 40 Mg Tablet 1 Tab PO DAILY Amoxicillin 500 Mg Tablet 1 Tab PO TID Vital Signs Vital Signs Date Time Temp Pulse Resp B/P (MAP) Pulse Ox O2 Delivery O2 Flow Rate FiO2 07/24/21 12:19 58 137/76 07/24/21 10:26 97.9 18 96 Room Air 97.9 Labs Laboratory Tests Test 07/23/21 01:44 07/23/21 07:50 07/23/21 10:55 07/23/21 12:15 White Blood Count 8.4 x10^3/uL (4.0-11.0) Red Blood Count 3.93 x10^6/uL (3.50-5.40) Hemoglobin 11.3 g/dL (12.0-15.5) Hematocrit 34.7 % (36.0-47.0) Mean Corpuscular Volume 88 fL (79-100) Mean Corpuscular Hemoglobin 29 pg (25-35) Mean Corpuscular Hemoglobin Concent 32 g/dL (31-37) Red Cell Distribution Width 13.7 % (11.5-14.5) Platelet Count 180 x10^3/uL (140-400) Neutrophils (%) (Auto) 59 % (31-73) Lymphocytes (%) (Auto) 26 % (24-48) Monocytes (%) (Auto) 10 % (0-9) Eosinophils (%) (Auto) 5 % (0-3) Basophils (%) (Auto) 0 % (0-3) Neutrophils # (Auto) 5.0 x10^3/uL (1.8-7.7) Lymphocytes # (Auto) 2.2 x10^3/uL (1.0-4.8) Monocytes # (Auto) 0.8 x10^3/uL (0.0-1.1) Eosinophils # (Auto) 0.4 x10^3/uL (0.0-0.7) Basophils # (Auto) 0.0 x10^3/uL (0.0-0.2) Sodium Level 141 mmol/L (136-145) Potassium Level 4.0 mmol/L (3.5-5.1) Chloride Level 105 mmol/L (98-107) Carbon Dioxide Level 29 mmol/L (21-32) Anion Gap 7 (6-14) Blood Urea Nitrogen 11 mg/dL (7-20) Creatinine 0.9 mg/dL (0.6-1.0) Estimated GFR (Cockcroft-Gault) 73.5 BUN/Creatinine Ratio 12 (6-20) Glucose Level 163 mg/dL (70-99) Hemoglobin A1c 5.5 % (4.8-5.6) Calcium Level 8.8 mg/dL (8.5-10.1) Total Bilirubin 0.2 mg/dL (0.2-1.0) Aspartate Amino Transf (AST/SGOT) 19 U/L (15-37) Alanine Aminotransferase (ALT/SGPT) 14 U/L (14-59) Alkaline Phosphatase 70 U/L (46-116) Troponin I Quantitative 0.031 ng/mL (0.000-0.055) 0.032 ng/mL (0.000-0.055) 0.031 ng/mL (0.000-0.055) Total Protein 6.5 g/dL (6.4-8.2) Albumin 3.6 g/dL (3.4-5.0) Albumin/Globulin Ratio 1.2 (1.0-1.7) Triglycerides Level 26 mg/dL (0-150) Cholesterol Level 158 mg/dL (0-200) LDL Cholesterol, Calculated 81 mg/dL (0-100) VLDL Cholesterol, Calculated 5 mg/dL (0-40) Non-HDL Cholesterol Calculated 86 mg/dL (0-129) HDL Cholesterol 72 mg/dL (40-60) Cholesterol/HDL Ratio 2.2 Thyroid Stimulating Hormone (TSH) 1.034 uIU/mL (0.358-3.74) D-Dimer (Celeste) 0.70 ug/mlFEU (0.00-0.50) Allergies Allergies Coded Allergies Type Severity Reaction Last Updated Verified codeine Allergy Intermediate HEART PALPITATIONS 11/29/15 Yes aspirin Adverse Reaction Intermediate STOMACH UPSET 07/23/21 Yes Disposition/Orders: D/C to Home Justicifation of Admission Dx: Justifications for Admission: Justification of Admission Dx: No VIVIANE REAVES MD Jul 24, 2021 12:45
[2021-07-24] MEDS ORDERED: DOCU-109 PO (12:48)
[2021-07-24] MEDS ORDERED: ALBU2.5V8 NEB (12:48)
[2021-07-24] MEDS ORDERED: SIMV20TA18 PO (12:48)
--- NOTE | 2021-07-24 12:51 | DISCH ---
DISCHARGE INSTRUCTIONS Condition on Discharge Condition on Discharge: Stable Activity After Discharge Activity Instructions for Disc: Resume previous activity Lifting Instructions after Dis: No heavy lifting, No pulling or pushing Driving Instructions after Dis: Do not drive Diet after Discharge Diet after Discharge: Cardiac Liquid Texture: Thin Liquid Checks after Discharge Checks after discharge: Check blood press - daily Contacting the [facility] after DC Call your doctor for: If your condition worsens Follow-Up Follow up with: SEE PCP IN 3-10 DAYS Treatment/Equipment after DC Adaptive Equipment Issued: None VIVIANE REAVES MD Jul 24, 2021 12:51
--- NOTE | 2021-07-24 14:30 | NUR ---
Discharge Note: AILIN SAUER [address] Discharge instructions and discharge home medications reviewed with Patient and a copy given. All questions have been answered and understanding verbalized. All belongings taken with patient. The following instructions and handouts were given: Chest pain Discontinued lines and drains: Peripheral IV intact. Patient discharged to Home or Self Care with Self via Wheelchair
== END 2021-07-24 14:50 | disposition home or self-care (01) ==
LOC: ER 01:25 → 6 SOUTH 02:51 → ED HOLD 02:52 → 6 SOUTH 13:28
PROVIDERS: ADMIT Family Medicine; ATTEND Family Medicine
DX: R07.2 Precordial pain (principal); D33.3 Benign neoplasm of cranial nerves; E66.01 Morbid (severe) obesity due to excess calories; E78.00 Pure hypercholesterolemia, unspecified; E78.5 Hyperlipidemia, unspecified; G47.33 Obstructive sleep apnea (adult) (pediatric); I10 Essential (primary) hypertension; K21.9 Gastro-esophageal reflux disease without esophagitis; M19.90 Unspecified osteoarthritis, unspecified site; R09.02 Hypoxemia; R32 Unspecified urinary incontinence; Z90.710 Acquired absence of both cervix and uterus; Z87.891 Personal history of nicotine dependence; Z79.899 Other long term (current) drug therapy; Z79.01 Long term (current) use of anticoagulants
CPT/HCPCS: 36415; 71045; 80053; 80061; 83036; 84443; 84484; 85025; 85379; 93005; 93306; 96365; 96366; 96372; 96375; 96376; 99285; G0378; J1650; J2270; J3490; G0379

== ENCOUNTER → 2021-09-01 | Outpatient (CLI) | payer MEDICARE ==
[~2021-09-01] MED LIST: ACET325T9 PO; ALBU2.5V8 NEB; AMLO-187 PO; AMOX500T PO; CALC500T30 PO; CHOL5000 PO; DOCU-109 PO; GLUC-11 PO; LACT1CAP37 PO; LISI40TA6 PO; METO100T7 PO; OMEG1CAP50 PO; OXYB10TA26 PO; PANT40TA6 PO; REGADENOSON 0.4 MG/5 ML DISP.SYRIN. IV ONE; SIMV20TA18 PO
--- NOTE | 2021-09-01 16:49 | RAD ---
MR#: [id number] Date of Study: 09/01/2021 Ordering Physician: GLORIA GIORDANO, Referring Physician: CORNELIO SANCHEZ Tech: RT Hallie (R) (N) APPROVED REPORT Test Type: Pharmacological Stress Nurse/Tech: Ifeoma Braun R.N. Test Indications: chest pain Cardiac History: htn, Medications: see ehr Medical History: see ehr Resting ECG: sr Resting Heart Rate: 57 bpm Resting Blood Pressure: 141/61mmHg Pretest Chest Pain: No chest pain Nurse/Tech Notes lungs cta, heart tones regular Consent: The procedure was explained to the patient in lay terms. Informed consent was witnessed. Cuong eout was entered into [employer]. History and Stress Test performed by DEEPTHI Oquendo Pharm. Details Pharmacologic stress testing was performed using 0.4mg per 5ml of regadenoson given intravenously ove r 7-10 seconds. Stress Symptoms No chest pain or symptoms.Dyspnea POST EXERCISE Reason for Termination: Infusion complete Target HR: No Max HR: 99 bpm Max Blood Pressure: 136/79mmHg Chest Pain: No. Arrhythmia: Yes. [address] Change: No. INTERPRETATION Stress EKG Conclusion: No evidence of stress induced EKG changes. Imaging Protocol IMAGE PROTOCOL: Rest Tc-99m/stress Tc-99m 1 day Rest: Stress: Viability: Radiopharm.Tc99m YsaedxrgiDp32d Sestamibi Fqxw47pLx 33mCi Duration 13min. 13min. Img Date 09/01/2021 09/01/2021 Inj-Img Qkon20voi. 60min. Rest Admin Site:IV - Right AntecubitalAdministrator:RT Hernandez (John)(N) Stress Admin Site: IV - Right AntecubitalAdministrator: DEEPTHI Oquendo STRESS DATA End Diast. Vol.99.0mlLVEDV index BSA50.0ml End Syst. Vol.26.0mlLVESV index BSA13.0ml Myocardial Dycd259.0gEject. Nxrjsful14.0% Stress Scores Regional WT0.00Summed WT1.00 Regional WM0.00Summed WM4.00 The rest and stress images show normal perfusion, normal contraction and thickening. LV Perf. Quant 17 Seg. SSS2.00 17 Seg. SRS3.00 17 Seg. SDS1.00 Stress Defect Extent (% LAD)0.00Rest Defect Extent (% LAD)7.50Rev. Defect Extent (% LAD)0.00 Stress Defect Extent (% LCX) 7.50Rest Defect Extent (% LCX)6.30Rev. Defect Extent (% LCX)0.00 Stress Defect Extent (% RCA)0.00Rest Defect Extent (% RCA)0.00Rev. Defect Extent (% RCA)0.00 Stress Defect Extent (% BEATRICE)1.50Rest Defect Extent (% BEATRICE)5.20Rev. Defect Extent (% BEATRICE)0.00 Other Information Quality:Fair Risk Assessment: Low Risk Conclusion 1. No evidence of EKG changes with stress testing. 2. Normal perfusion at stress/rest. 3. Low risk study. 4. EF > 60%. Signed by : Gloria Giordano, Electronically Approved : 09/01/2021 16:49:06
== END ==
LOC: NM 09:21
PROVIDERS: ATTEND Internal Medicine Cardiovascular Disease
DX: R07.9 Chest pain, unspecified (principal)
CPT/HCPCS: 78452; 93017; A9500; J2785